=== PATIENT | female | born 1985 | race Caucasian/White ===

== ENCOUNTER 2016-12-24 19:39 | Emergency (ER) | payer OTHER ==
[2016-12-24] MEDS ORDERED: ZOFRAN IV ONE (20:21)
[2016-12-24] MEDS ORDERED: DILAUDID IV ONE ×2 (20:21→20:40)
[2016-12-24] MEDS ORDERED: AMIDATE IV ONE ×2 (20:22→20:54)
--- NOTE | 2016-12-24 21:08 | Emergency Department Report ---
ED Upper Extremity Inj HPI - General Chief Complaint: Extremity Injury, Upper Stated Complaint: POSS DISLOCATED RT SHOULDER Time Seen by Provider: 12/24/16 20:18 Source: patient, family Mode of arrival: Ambulatory Limitations: No Limitations - History of Present Illness Initial Comments: 31 year old female with no significant past medical history presents to the hospital complaining of possible right shoulder dislocation. Patient was receiving for her baby when she felt a pop in her shoulder. Decreased range of motion secondary to pain. No previous history of trauma or previous dislocations. Pain is 7/10 intensity, aching, constant, worse with movement and palpation, no alleviating factors. She is right-hand dominant. - Related Data Previous Rx's Medication Instructions Recorded Last Taken Type Ibuprofen [Motrin] 800 mg PO Q8HR PRN #30 tablet 12/24/16 Unknown Rx traMADol [Ultram 50 MG tab] 50 mg PO Q6HR PRN #20 tablet 12/24/16 Unknown Rx Allergies Allergy/AdvReac Type Severity Reaction Status Date / Time No Known Allergies Allergy Verified 12/24/16 19:43 ED Review of Systems ROS: Stated complaint: POSS DISLOCATED RT SHOULDER Other details as noted in HPI Comment: All other systems reviewed and negative Other: Constitutional: No fevers chills Eyes: No eye pain visual changes ENT: No ear pain or throat pain Neck: Denies pain Respiratory: Denies cough wheezing shortness of breath Cardiovascular: Denies chest pain, palpitations, syncope GI: Denies abdominal pain, nausea, vomiting, diarrhea : Denies dysuria Musculoskeletal: Per HPI Skin: Denies rash, lesions, erythema Neurologic: Denies headache, numbness, weakness Psychiatric: Denies suicidal ideation, hallucinations ED Past Medical Hx - Past Medical History Previous Medical History?: No - Surgical History Past Surgical History?: No - Social History Smoking Status: Never Smoker Substance Use Type: None - Medications Home Medications: Home Medications Medication Instructions Recorded Confirmed Last Taken Type Ibuprofen [Motrin] 800 mg PO Q8HR PRN #30 tablet 12/24/16 Unknown Rx traMADol [Ultram 50 MG tab] 50 mg PO Q6HR PRN #20 tablet 12/24/16 Unknown Rx ED Physical Exam - General Limitations: No Limitations - Other Other exam information: General: No limitations, patient is alert in no acute distress Head exam: Atraumatic, normocephalic Eyes exam: Normal appearance, pupils equal reactive to light, extraocular movements intact ENT: Moist mucous membrane, normal oropharynx Neck exam: Normal inspection, full range of motion, no meningismus nontender Respiratory exam: Clear to auscultation bilateral, no wheezes, rales, crackles Cardiovascular: Normal rate and rhythm, normal heart sounds Abdomen: Soft, nondistended, and nontender, with normal bowel sounds, no rebound, or guarding Extremity: Right shoulder held adducted internally rotated. Positive deformity to shoulder area, tender to palpation, pain with movement in all directions, 2+ DP pulse. Sensation along forearm and deltoid intact. Back: Normal Inspection, full range of motion, no tenderness Neurologic: Alert, oriented x3, cranial nerves intact, no motor or sensory deficit Psychiatric: normal affect, normal mood Skin: Warm, dry, intact ED Course Vital Signs 12/24/16 12/24/16 12/24/16 19:39 20:30 20:42 Temperature 97.7 F Temperature [ Intra-Procedure ] Temperature [ Post-Procedure] Temperature [ Pre-Procedure] Pulse Rate 95 H Pulse Rate [ Intra-Procedure ] Pulse Rate [ Post-Procedure] Pulse Rate [Pre -Procedure] Respiratory 22 18 18 Rate Respiratory Rate [Intra- Procedure] Respiratory Rate [Post- Procedure] Respiratory Rate [Pre- Procedure] Blood Pressure [Intra- Procedure] Blood Pressure [Post-Procedure ] Blood Pressure [Pre-Procedure] Blood Pressure 155/96 [Right] O2 Sat by Pulse 97 Oximetry O2 Sat by Pulse Oximetry [ Intra-Procedure ] O2 Sat by Pulse Oximetry [Post -Procedure] O2 Sat by Pulse Oximetry [Pre- Procedure] 12/24/16 12/24/16 12/24/16 20:50 20:54 20:58 Temperature Temperature [ 98.3 F Intra-Procedure ] Temperature [ Post-Procedure] Temperature [ 98.1 F Pre-Procedure] Pulse Rate Pulse Rate [ 84 Intra-Procedure ] Pulse Rate [ Post-Procedure] Pulse Rate [Pre 97 H -Procedure] Respiratory 18 22 Rate Respiratory 18 Rate [Intra- Procedure] Respiratory Rate [Post- Procedure] Respiratory 18 Rate [Pre- Procedure] Blood Pressure 140/90 [Intra- Procedure] Blood Pressure [Post-Procedure ] Blood Pressure 115/76 [Pre-Procedure] Blood Pressure [Right] O2 Sat by Pulse Oximetry O2 Sat by Pulse 100 Oximetry [ Intra-Procedure ] O2 Sat by Pulse Oximetry [Post -Procedure] O2 Sat by Pulse 100 Oximetry [Pre- Procedure] 12/24/16 21:04 Temperature Temperature [ Intra-Procedure ] Temperature [ 98.3 F Post-Procedure] Temperature [ Pre-Procedure] Pulse Rate Pulse Rate [ Intra-Procedure ] Pulse Rate [ 66 Post-Procedure] Pulse Rate [Pre -Procedure] Respiratory Rate Respiratory Rate [Intra- Procedure] Respiratory 18 Rate [Post- Procedure] Respiratory Rate [Pre- Procedure] Blood Pressure [Intra- Procedure] Blood Pressure 129/90 [Post-Procedure ] Blood Pressure [Pre-Procedure] Blood Pressure [Right] O2 Sat by Pulse Oximetry O2 Sat by Pulse Oximetry [ Intra-Procedure ] O2 Sat by Pulse 100 Oximetry [Post -Procedure] O2 Sat by Pulse Oximetry [Pre- Procedure] - Moderate Sedation Indications: fracture/dislocation redu ASA Class: I Mallampati Airway Score: 2 Time of Last PO Intake: 16:00 Preparation: cardiac/vascular sonographer applied, pulse oximeter, capnometry used, supplemental O2 applied, suction/airway equipment at bedside, IV secured IV Etomidate Dose (mgs): 15 Complications: none Patient Tolerated Procedure: well - Orthopedic Joint Reduction Joint #1 Consent Obtained: written consent Time Out Performed: Yes Side: right Joint Reduction Location: shoulder Analgesia: moderate sedation Shoulder Technique Used (if applicable): traction/counter-traction Post-Reduction Neuro Exam: intact Post-Reduction Vascular Exam: intact Post Reduction X-Ray Obtained: Yes Post Reduction X-Ray Results: reduced Splint Applied: Yes Patient Tolerated Procedure: well ED Medical Decision Making - Radiology Data Radiology results: image reviewed interpreted by me: Right shoulder x-ray: Inferior anterior shoulder dislocation repeat post reduction xray right shoulder: improved alignment - Medical Decision Making Patient had a shoulder dislocation. Successfully reduced in the ED. Patient be discharged with shoulder immobilizer and pain medication. Orthopedic follow- up will be encouraged. - Differential Diagnosis dislocation, fracture, sprain Critical Care Time: No Critical care attestation.: If time is entered above; I have spent that time in minutes in the direct care of this critically ill patient, excluding procedure time. ED Disposition Clinical Impression: Dislocation of right shoulder joint Disposition: DC-01 TO HOME OR SELFCARE Is pt being admited?: No Does the pt Need Aspirin: No Condition: Stable Instructions: Shoulder Dislocation (ED) Additional Instructions: Take the medication as needed for pain. Return if symptoms worsen. Continue to use your sling. Is very important that you follow up with orthopedic doctor for further evaluation and treatment as well as rehabilitation Prescriptions: Ibuprofen [Motrin] 800 mg PO Q8HR PRN #30 tablet PRN Reason: Pain traMADol [Ultram 50 MG tab] 50 mg PO Q6HR PRN #20 tablet PRN Reason: Pain Referrals: MADHURI MCKEON MD [Staff Physician] - 3-5 Days (Orthopedic surgeon) Time of Disposition: 21:58
[2016-12-25 02:45] VITALS: BP 121/72
--- NOTE | 2016-12-25 08:44 | XRay Report ---
3 views right shoulder: History: Postreduction. Findings: Normal glenoid relation with humeral head. No fracture or dislocation. Impression: Stable post reduction.
--- NOTE | 2016-12-25 08:44 | XRay Report ---
Right shoulder 2 views: History: Possible dislocation. Findings: There is anterior dislocation noted of the humeral head. Humeral head is noted in the anterior inferior aspect of the glenoid. No fracture. Impression: Anterior dislocation right shoulder.
== END 2016-12-24 22:15 | disposition home or self-care (01) ==
LOC: ED 19:39
DX: S43.004A Unspecified dislocation of right shoulder joint, initial encounter (principal); X58.XXXA Exposure to other specified factors, initial encounter; Y93.9 Activity, unspecified; Y92.9 Unspecified place or not applicable; Y99.9 Unspecified external cause status
CPT/HCPCS: 23650; 73030; 96374; 96375; 99284; J1170; J2405

== ENCOUNTER 2020-08-30 19:15 | Emergency (ER) | payer SELFPAY ==
[2020-08-30 22:20] VITALS: BP 100/62
--- NOTE | 2020-08-30 22:45 | Emergency Department Report ---
ED General Adult HPI - General Chief complaint: Chest Pain Stated complaint: CHEST PAIN;BACK PAIN Time Seen by Provider: 08/30/20 22:35 Source: patient Mode of arrival: Ambulatory Limitations: No Limitations - History of Present Illness Initial comments: Patient is a 35-year-old female presents emergency room with complaints of intermittent chest pain for a year. Patient states that the pain begins in the epigastric region and radiates up the chest. She states that it feels like a burning sensation and she gets a metallic taste in her mouth and occasionally she has bloating. She states that she is also been having some lower back discomfort. Patient states that she went to a clinic approximately year ago and was advised everything was normal. She states last week she saw her primary care doctor and was diagnosed with H. pylori and placed on clarithromycin, amoxicillin, lansoprazole. She has not seen a GI specialist. She denies any fever, shortness of breath, leg swelling, nausea, vomiting, diarrhea, hemoptysis, cough, pleuritic or exertional chest pain. No past medical history. No allergies to medications. Last menstrual cycle 3 weeks ago. - Related Data Previous Rx's Medication Instructions Recorded Last Taken Type Ibuprofen [Motrin] 800 mg PO Q8HR PRN #30 tablet 12/24/16 Unknown Rx traMADoL [Ultram 50 MG tab] 50 mg PO Q6HR PRN #20 tablet 12/24/16 Unknown Rx Lidocaine Viscous 2% 15 ml MM Q6HR PRN #150 ml 08/31/20 Unknown Rx Mag Hydrox/Aluminum Hyd/Simeth 10 ml PO QID PRN #1 oral.susp 08/31/20 Unknown Rx [Maalox Advanced Suspension] Allergies Allergy/AdvReac Type Severity Reaction Status Date / Time No Known Allergies Allergy Verified 12/24/16 19:43 ED Review of Systems ROS: Stated complaint: CHEST PAIN;BACK PAIN Other details as noted in HPI Comment: All other systems reviewed and negative ED Past Medical Hx - Past Medical History Previous Medical History?: No - Surgical History Past Surgical History?: No - Social History Smoking Status: Never Smoker Substance Use Type: None - Medications Home Medications: Home Medications Medication Instructions Recorded Confirmed Last Taken Type Ibuprofen [Motrin] 800 mg PO Q8HR PRN #30 tablet 12/24/16 Unknown Rx traMADoL [Ultram 50 MG tab] 50 mg PO Q6HR PRN #20 tablet 12/24/16 Unknown Rx Lidocaine Viscous 2% 15 ml MM Q6HR PRN #150 ml 08/31/20 Unknown Rx Mag Hydrox/Aluminum Hyd/Simeth 10 ml PO QID PRN #1 oral.susp 08/31/20 Unknown Rx [Maalox Advanced Suspension] ED Physical Exam - General Limitations: No Limitations General appearance: alert, in no apparent distress - Head Head exam: Present: atraumatic, normocephalic - Eye Eye exam: Present: normal appearance - ENT ENT exam: Present: mucous membranes moist - Respiratory Respiratory exam: Present: normal lung sounds bilaterally. Absent: respiratory distress, wheezes, rales, rhonchi, stridor, chest wall tenderness, accessory muscle use, decreased breath sounds, prolonged expiratory - Cardiovascular Cardiovascular Exam: Present: regular rate, normal rhythm, normal heart sounds. Absent: systolic murmur, diastolic murmur, rubs, gallop - GI/Abdominal GI/Abdominal exam: Present: soft, normal bowel sounds. Absent: distended, tenderness, guarding, rebound, rigid - Neurological Exam Neurological exam: Present: alert, oriented X3 - Psychiatric Psychiatric exam: Present: normal affect, normal mood - Skin Skin exam: Present: warm, dry, intact ED Course Vital Signs 08/30/20 22:13 Temperature 97.8 F Pulse Rate 68 Respiratory 18 Rate Blood Pressure 100/62 O2 Sat by Pulse 98 Oximetry ED Medical Decision Making - Lab Data Result diagrams: 08/30/20 22:50 08/30/20 22:50 Labs 08/30/20 08/30/20 08/30/20 22:50 22:50 Unknown WBC 8.2 RBC 4.91 Hgb 15.0 H Hct 43.4 H MCV 88 MCH 31 MCHC 35 H RDW 13.4 Plt Count 244 Lymph % (Auto) 22.8 [place] % (Auto) 6.7 Eos % (Auto) 1.2 Baso % (Auto) 0.3 Lymph # (Auto) 1.9 [place] # (Auto) 0.5 Eos # (Auto) 0.1 Baso # (Auto) 0.0 Seg Neutrophils % 69.0 Seg Neutrophils # 5.7 Sodium 138 Potassium 3.7 Chloride 102.3 Carbon Dioxide 24 Anion Gap 15 BUN 18 H Creatinine 0.6 Estimated GFR > 60 BUN/Creatinine Ratio 30 Glucose 85 Calcium 9.2 Total Bilirubin 0.30 AST 20 ALT 31 Alkaline Phosphatase 90 Total Protein 7.3 Albumin 4.5 Albumin/Globulin Ratio 1.6 Lipase 31 Urine Color Yellow Urine Turbidity Clear Urine pH 9.0 H Ur Specific [place] 1.017 Urine Protein <15 mg/dl Urine Glucose (UA) Neg Urine Ketones Neg Urine Blood Neg Urine Nitrite Neg Urine Bilirubin Neg Urine Urobilinogen < 2.0 Ur Leukocyte Esterase Neg Urine WBC (Auto) 1.0 Urine RBC (Auto) 11.0 U Epithel Cells (Auto) 10.0 Urine Mucus Few Urine HCG, Qual Negative - Medical Decision Making Patient is a 35-year-old female presents emergency room with complaints of intermittent chest pain for a year. Patient states that the pain begins in the epigastric region and radiates up the chest. She states that it feels like a burning sensation and she gets a metallic taste in her mouth and occasionally she has bloating. She states that she is also been having some lower back discomfort. Patient states that she went to a clinic approximately year ago and was advised everything was normal. She states last week she saw her primary care doctor and was diagnosed with H. pylori and placed on clarithromycin, amoxicillin, lansoprazole. She has not seen a GI specialist. She denies any fever, shortness of breath, leg swelling, nausea, vomiting, diarrhea, hemoptysis, cough, pleuritic or exertional chest pain. No past medical history. No allergies to medications. Last menstrual cycle 3 weeks ago. Vitals are normal. No abnormality on physical examination as documented in chart. Labs are normal. UA is within normal limits. Urine is negative. EKG ordered prior to my examination is within normal limits. Symptoms appear most consistent with PUD versus GERD. Patient is currently on medications for PUD. Patient given prescription for medications for symptomatic relief. Discussed the importance of GI follow-up. Advised patient Please complete your course of medications as prescribed by your doctor. Please take medications as prescribed as needed. Follow-up with a primary care doctor. Follow-up with a GI doctor. Increase your water intake. Avoid spicy food, avoid anything barbecue base, avoid anything tomato-based, avoid eating and laying flat. Return to emergency room for any new or worsening symptoms. Critical care attestation.: If time is entered above; I have spent that time in minutes in the direct care of this critically ill patient, excluding procedure time. ED Disposition Clinical Impression: PUD (peptic ulcer disease) Disposition: DC-01 TO HOME OR SELFCARE Is pt being admited?: No Does the pt Need Aspirin: No Condition: Stable Instructions: Peptic Ulcer, [id number] Additional Instructions: Please complete your course of medications as prescribed by your doctor. Please take medications as prescribed as needed. Follow-up with a primary care doctor. Follow-up with a GI doctor. Increase your water intake. Avoid spicy food, avoid anything barbecue base, avoid anything tomato-based, avoid eating and laying flat. Return to emergency room for any new or worsening symptoms. Prescriptions: Lidocaine Viscous 2% 15 ml MM Q6HR PRN #150 ml PRN Reason: burning Mag Hydrox/Aluminum Hyd/Simeth [Maalox Advanced Suspension] 10 ml PO QID PRN #1 oral.susp PRN Reason: pain/burning Referrals: PRIMARY CARE, [Primary Care Provider] - 2-3 Days [facility] [Provider Group] - 2-3 Days Time of Disposition: 00:27 Print Language: IRISH
[2020-08-30 23:18] LABS: Basophils % (Auto) 0.3 % (0.0-1.8); Eosinophils # (Auto) 0.1 K/mm3 (0.0-0.4); Eosinophils % (Auto) 1.2 % (0.0-4.3); Hematocrit 43.4 % (30.3-42.9); Lymphocytes # (Auto) 1.9 K/mm3 (1.2-5.4); Lymphocytes % (Auto) 22.8 % (13.4-35.0); Mean Corpuscular HGB Conc 35 % (30-34); Mean Corpuscular Volume 88 fl (79-97); Monocytes # (Auto) 0.5 K/mm3 (0.0-0.8); Monocytes % (Auto) 6.7 % (0.0-7.3); Platelet Count 244 K/mm3 (140-440); Red Blood Count 4.91 M/mm3 (3.65-5.03); Red Cell Distribution Width 13.4 % (13.2-15.2)
[2020-08-30 23:31] LABS: Bilirubin,Urine NEG (Negative); Blood,Urine NEG (Negative); Color,Urine Yellow (Yellow); Mucus,Urine FEW /HPF; Protein,Urine <15 mg/dL mg/dL (Negative); Urobilinogen,Urine < 2.0 mg/dL (<2.0)
[2020-08-30 23:41] LABS: HCG Qualitative,Urine Negative (Negative)
[2020-08-31 00:15] LABS: Alanine Aminotransferase 31 units/L (7-56); Albumin 4.5 g/dL (3.9-5); BUN/Creatinine Ratio 30; Blood Urea Nitrogen 18 mg/dL (7-17); Calcium 9.2 mg/dL (8.4-10.2); Hemolysis Index 8
== END 2020-08-31 01:55 | disposition home or self-care (01) ==
LOC: ED 19:15
DX: K27.9 Peptic ulcer, site unspecified, unspecified as acute or chronic, without hemorrhage or perforation (principal); Z79.899 Other long term (current) drug therapy
CPT/HCPCS: 36415; 80053; 81001; 81025; 83690; 85025; 93005

== ENCOUNTER 2021-07-29 01:42 | Inpatient (IN) | payer SELFPAY ==
[2021-07-29 02:23] LABS: Bilirubin,Urine NEG (Negative); Blood,Urine LG (Negative); Color,Urine Yellow (Yellow); Mucus,Urine FEW /HPF; Protein,Urine <15 mg/dL mg/dL (Negative); Urobilinogen,Urine < 2.0 mg/dL (<2.0)
[2021-07-29 02:43] LABS: Basophils % (Auto) 0.5 % (0.0-1.8); Eosinophils # (Auto) 0.1 K/mm3 (0.0-0.4); Eosinophils % (Auto) 1.2 % (0.0-4.3); Hematocrit 42.3 % (30.3-42.9); Hemoglobin 14.2 gm/dl (10.1-14.3); Lymphocytes % (Auto) 17.2 % (13.4-35.0); Mean Corpuscular HGB Conc 34 % (30-34); Mean Corpuscular Volume 86 fl (79-97); Monocytes # (Auto) 0.4 K/mm3 (0.0-0.8); Monocytes % (Auto) 7.6 % (0.0-7.3); Platelet Count 256 K/mm3 (140-440); Red Cell Distribution Width 13.7 % (13.2-15.2)
[2021-07-29 03:01] LABS: Alanine Aminotransferase 575 units/L (7-56); Albumin 4.4 g/dL (3.9-5); Blood Urea Nitrogen 9 mg/dL (7-17); Calcium 9.4 mg/dL (8.4-10.2); Hemolysis Index 5
[2021-07-29 03:37] LABS: BUN/Creatinine Ratio 18
[2021-07-29] MEDS ORDERED: MORPHINE 4 MG/1 ML INJ IV ONE (04:49)
[2021-07-29] MEDS ORDERED: ONDANSETRON 4 MG/2 ML INJ IV ONE (04:49)
[2021-07-29] MEDS ORDERED: FAMOTIDINE 20 MG/2 ML INJ IV ONE (04:49)
--- NOTE | 2021-07-29 05:16 | Emergency Department Report ---
<HUMZA ZAVALA - Last Filed: 07/29/21 06:07> ED Abdominal Pain HPI - General Chief Complaint: Abdominal Pain Stated Complaint: ABD AND BACK PAIN Source: patient Mode of arrival: Ambulatory Limitations: No Limitations - History of Present Illness Initial Comments: Patient is a 36-year-old female with no past medical history who presents to the ED with complaint of acute onset persistent epigastric pain that radiates to the right upper quadrant area with intractable nausea and vomiting for the last 12 hours. Patient states the pain has been constant and persistent and that the pain gets worse with food as a result of nausea and vomiting. P atient denies fever, chills, cough, dizziness, syncope, chest pain, shortness of breath, diarrhea, dysuria, urinary frequency and urgency, vaginal discharge or dyspareunia and flank pain. MD Complaint: abdominal pain (Diffuse upper abdominal pain worse in the right upper quadrant area), other (Intractable nausea and vomiting) -: Sudden, hour(s) (12) Location: RUQ, epigastric Radiation: RUQ, epigastric Severity: severe Severity scale (0 -10): 8 Quality: cramping, aching, sharp Consistency: constant Improves With: nothing Worsens With: eating, vomiting Associated Symptoms: denies other symptoms, nausea, vomiting, anorexia. denies: diarrhea, fever, chills, constipation, hematemesis, hematochezia, melena, hematuria, other - Related Data LMP Date: 07/24/21 Previous Rx's Medication Instructions Recorded Last Taken Type Ibuprofen [Motrin] 800 mg PO Q8HR PRN #30 tablet 12/24/16 Unknown Rx traMADoL [Ultram 50 MG tab] 50 mg PO Q6HR PRN #20 tablet 12/24/16 Unknown Rx Lidocaine Viscous 2% 15 ml MM Q6HR PRN #150 ml 08/31/20 Unknown Rx Mag Hydrox/Aluminum Hyd/Simeth 10 ml PO QID PRN #1 oral.susp 08/31/20 Unknown Rx [Maalox Advanced Suspension] Allergies Allergy/AdvReac Type Severity Reaction Status Date / Time No Known Allergies Allergy Verified 12/24/16 19:43 ED Review of Systems Constitutional: denies: chills, fever Eyes: denies: eye pain, eye discharge, vision change ENT: denies: ear pain, throat pain Respiratory: denies: cough, shortness of breath, wheezing Cardiovascular: denies: chest pain, palpitations Endocrine: no symptoms reported Gastrointestinal: abdominal pain (Epigastric and right upper quadrant pain), nausea, vomiting. denies: diarrhea Genitourinary: denies: urgency, dysuria, discharge Musculoskeletal: denies: back pain, joint swelling, arthralgia Skin: denies: rash, lesions Neurological: denies: headache, weakness, paresthesias Psychiatric: denies: anxiety, depression Hematological/Lymphatic: denies: easy bleeding, easy bruising ED Past Medical Hx - Social History Smoking Status: Never Smoker Substance Use Type: None - Medications Home Medications: Home Medications Medication Instructions Recorded Confirmed Last Taken Type Ibuprofen [Motrin] 800 mg PO Q8HR PRN #30 tablet 12/24/16 Unknown Rx traMADoL [Ultram 50 MG tab] 50 mg PO Q6HR PRN #20 tablet 12/24/16 Unknown Rx Lidocaine Viscous 2% 15 ml MM Q6HR PRN #150 ml 08/31/20 Unknown Rx Mag Hydrox/Aluminum Hyd/Simeth 10 ml PO QID PRN #1 oral.susp 08/31/20 Unknown Rx [Maalox Advanced Suspension] ED Physical Exam - General Limitations: No Limitations General appearance: alert, in no apparent distress - Head Head exam: Present: atraumatic, normocephalic, normal inspection - Eye Eye exam: Present: normal appearance, PERRL, EOMI Pupils: Present: normal accommodation - ENT ENT exam: Present: normal exam, normal orophraynx, mucous membranes moist, TM's normal bilaterally, normal external ear exam - Neck Neck exam: Present: normal inspection, full ROM. Absent: tenderness - Respiratory Respiratory exam: Present: normal lung sounds bilaterally. Absent: respiratory distress, wheezes, rales, rhonchi, chest wall tenderness, accessory muscle use, decreased breath sounds, other - Cardiovascular Cardiovascular Exam: Present: regular rate, normal rhythm, normal heart sounds. Absent: systolic murmur, diastolic murmur, rubs, gallop - GI/Abdominal GI/Abdominal exam: Present: soft, tenderness (Palpable epigastric and right upper quadrant tenderness with a positive Stuart sign), guarding, normal bowel sounds. Absent: rebound, hyperactive bowel sounds, hypoactive bowel sounds, organomegaly, bruit - Extremities Exam Extremities exam: Present: normal inspection, full ROM, normal capillary refill. Absent: tenderness - Back Exam Back exam: Present: normal inspection, full ROM. Absent: tenderness, CVA tenderness (R), CVA tenderness (L), muscle spasm, paraspinal tenderness, vertebral tenderness - Neurological Exam Neurological exam: Present: alert, oriented X3, CN II-XII intact, normal gait, reflexes normal - Psychiatric Psychiatric exam: Present: normal affect, normal mood - Skin Skin exam: Present: warm, dry, intact, normal color. Absent: rash ED Medical Decision Making - Lab Data Result diagrams: 07/29/21 02:04 07/29/21 02:04 - Radiology Data Radiology results: report reviewed, image reviewed - Medical Decision Making This is a 36-year-old female with no past medical history who presents to the ED with complaint of acute onset persistent epigastric pain that radiates to the right upper quadrant area with intractable nausea and vomiting for the last 12 hours. Patient states the pain has been constant and persistent and that the pain gets worse with food as a result of nausea and vomiting. In the ED, patient is alert and oriented x3 and is not in any distress. Patient was treated for pain in the ED and also given antiemetics and antacids. Lab test results were reviewed and showed total bilirubin of 1.30, AST of 727, ALT of 575, and alk phos of 167. Urinalysis is unremarkable. Patient care was transferred to Ms. Saida Quintanilla COMPUTER PROGRAMMING SUPERVISOR at shift change. She shall review all imaging reports and disposition the patient accordingly. - Differential Diagnosis Gallstones; cholecystitis; GERD; gastroenteritis; appendicitis; UTI ED Disposition Clinical Impression: Acute abdominal pain in right upper quadrant Disposition: 01 HOME / SELF CARE / HOMELESS Condition: Stable Instructions: Abdominal Pain (ED) Referrals: MYLENE WU MD [Primary Care Provider] - 3-5 Days <ANNIE LUNA - Last Filed: 07/29/21 07:42> ED Abdominal Pain HPI - General PUI?: No ED Review of Systems ROS: Stated complaint: ABD AND BACK PAIN Other details as noted in HPI Comment: All other systems reviewed and negative ED Past Medical Hx - Past Medical History Previous Medical History?: No - Family History Family history: no significant ED Course Vital Signs 07/29/21 01:46 Temperature 98.3 F Pulse Rate 86 Respiratory 18 Rate Blood Pressure 140/91 O2 Sat by Pulse 96 Oximetry - Reevaluation(s) Reevaluation #1: 07/29/21 07:[address] Riki LR aware of admit- Dr Garcia to see pt updated on plan of care ED Medical Decision Making - Lab Data Result diagrams: 07/29/21 02:04 07/29/21 02:04 - Radiology Data see report - Medical Decision Making Labs 07/29/21 07/29/21 07/29/21 02:04 02:04 05:56 WBC 5.6 RBC 4.90 Hgb 14.2 Hct 42.3 MCV 86 MCH 29 MCHC 34 RDW 13.7 Plt Count 256 Lymph % (Auto) 17.2 [place] % (Auto) 7.6 H Eos % (Auto) 1.2 Baso % (Auto) 0.5 Lymph # (Auto) 1.0 L [place] # (Auto) 0.4 Eos # (Auto) 0.1 Baso # (Auto) 0.0 Seg Neutrophils % 73.5 H Seg Neutrophils # 4.1 Sodium 137 Potassium 3.8 Chloride 104.0 Carbon Dioxide 21 L Anion Gap 16 BUN 9 Creatinine 0.5 L Estimated GFR > 60 BUN/Creatinine Ratio 18 Glucose 104 H Calcium 9.4 Total Bilirubin 1.30 H AST 727 H ALT 575 H Alkaline Phosphatase 167 H Total Protein 7.3 Albumin 4.4 Albumin/Globulin Ratio 1.5 HCG, Qual Negative Urine Color Urine Turbidity Urine pH Ur Specific [place] Urine Protein Urine Glucose (UA) Urine Ketones Urine Blood Urine Nitrite Urine Bilirubin Urine Urobilinogen Ur Leukocyte Esterase Urine WBC (Auto) Urine RBC (Auto) U Epithel Cells (Auto) Urine Mucus 07/29/21 Unknown WBC RBC Hgb Hct MCV MCH MCHC RDW Plt Count Lymph % (Auto) [place] % (Auto) Eos % (Auto) Baso % (Auto) Lymph # (Auto) [place] # (Auto) Eos # (Auto) Baso # (Auto) Seg Neutrophils % Seg Neutrophils # Sodium Potassium Chloride Carbon Dioxide Anion Gap BUN Creatinine Estimated GFR BUN/Creatinine Ratio Glucose Calcium Total Bilirubin AST ALT Alkaline Phosphatase Total Protein Albumin Albumin/Globulin Ratio HCG, Qual Urine Color Yellow Urine Turbidity Clear Urine pH 5.0 Ur Specific [place] 1.016 Urine Protein <15 mg/dl Urine Glucose (UA) Neg Urine Ketones Neg Urine Blood Lg Urine Nitrite Neg Urine Bilirubin Neg Urine Urobilinogen < 2.0 Ur Leukocyte Esterase Neg Urine WBC (Auto) 4.0 Urine RBC (Auto) 28.0 U Epithel Cells (Auto) 2.0 Urine Mucus Few Vital Signs 07/29/21 01:46 Temperature 98.3 F Pulse Rate 86 Respiratory 18 Rate Blood Pressure 140/91 O2 Sat by Pulse 96 Oximetry PT NPO for surgery today or in AM Dr Garcia and Dr Lyn to see Pt aware VS check reordered Critical care attestation.: If time is entered above; I have spent that time in minutes in the direct care of this critically ill patient, excluding procedure time. ED Disposition Is pt being admited?: Yes Does the pt Need Aspirin: No Time of Disposition: 07:42
--- NOTE | 2021-07-29 05:56 | Cat Scan Report ---
CT ABDOMEN AND PELVIS WITH CONTRAST INDICATION / CLINICAL INFORMATION: Patient complains of R.U.Q. and R.L.Q. abdominal pain with N/V. TECHNIQUE: Axial CT images were obtained through the abdomen and pelvis after 100 cc Omnipaque [address] scans at this location are performed using CT dose reduction for ALARA by means of automated exposure control. COMPARISON: None available. FINDINGS: LOWER CHEST: No significant abnormality of the imaged chest. Small hiatal hernia. LIVER: No significant abnormality. GALLBLADDER: At least one small gallstone is noted within the dependent gallbladder fundus. Gallbladd er wall may be minimally thickened. No inflammatory changes. BILE DUCTS: No significant abnormality. SPLEEN: No significant abnormality. PANCREAS: No significant abnormality. ADRENALS: No significant abnormality. RIGHT KIDNEY / URETER: No significant abnormality. LEFT KIDNEY / URETER: No significant abnormality. STOMACH / DUODENUM / SMALL BOWEL: No significant abnormality. COLON: No significant abnormality. APPENDIX: No significant abnormality. PERITONEUM: No free air or free fluid are present within the abdomen or pelvis. LYMPH NODES: No significant adenopathy. AORTA / ARTERIES: No significant abnormality. IVC / VEINS: No significant abnormality. URINARY BLADDER: No significant abnormality. REPRODUCTIVE ORGANS: No significant abnormality. Incidental note is made of tampon. ADDITIONAL ABDOMINAL/PELVIC FINDINGS: None. SKELETAL SYSTEM: No significant abnormality. IMPRESSION: 1. Cholelithiasis with minimal thickening of the gallbladder wall suggested. No inflammatory changes to suggest acute cholecystitis. Signer Name: Naseem Gunn II, MD Signed: 07/29/2021 5:52 AM Workstation Name: [id number]
[2021-07-29] MEDS ORDERED: PIPERACIL/TAZOBACTA 4.5/NS 100 4.5 GM/100 ML VIAL IV ONE (06:09)
--- NOTE | 2021-07-29 07:05 | Ultrasound Report ---
ULTRASOUND ABDOMEN, LIMITED INDICATION / CLINICAL INFORMATION: RUQ PAIN. COMPARISON: CT abdomen and pelvis same date FINDINGS: PANCREAS: No interval acute findings. LIVER: Mild hepatic steatosis is suggested. Right back lobe measures 15.5 cm. Normal hepatopedal bloo d flow in the main portal vein. GALLBLADDER: Multiple gallstones. Gallbladder wall measures up to 2-3 mm. No pericholecystic fluid. BILE DUCTS: No significant abnormality. Common bile duct measures 3.2 mm. FREE FLUID: None. ADDITIONAL FINDINGS: Images of the aorta and inferior vena cava demonstrate no interval acute finding s. IMPRESSION: 1. Minimally echogenic liver suggests mild hepatic steatosis. 2. Cholelithiasis. Borderline wall thickening. Signer Name: Naseem Gunn II, MD Signed: 07/29/2021 7:01 AM Workstation Name: [id number]
[2021-07-29] MEDS ORDERED: SODIUM CHLORIDE 0.9% 1000 ML 1,000 ML IV ONE (07:56)
[2021-07-29] MEDS ORDERED: ACETAMINOPHEN 325 MG TAB PO PRN (09:00)
[2021-07-29] MEDS ORDERED: D5W/0.45% NACL 1,000 ML IV SCH (09:00)
[2021-07-29] MEDS ORDERED: MORPHINE 2 MG/1 ML INJ IV PRN (09:00)
[2021-07-29] MEDS ORDERED: ONDANSETRON 4 MG/2 ML INJ IV PRN ×2 (09:00→12:42)
--- NOTE | 2021-07-29 10:43 | Consultation ---
History of Present Illness Consult date: 07/29/21 Reason for consult: gallstones - History of present illness History of present illness: Patient is a 36-year-old female with no past medical history who presents to the ED with complaint of acute onset persistent epigastric pain that radiates to the right upper quadrant area with intractable nausea and vomiting for the last 12 hours. Patient states the pain has been constant and persistent and that the pain gets worse with food as a result of nausea and vomiting. Pt notes fatty food intolerance and four prior episodes of severe pain. She has been seen in the ED a total of three times. US with multiple small stones. Pt without history of Pancreatitis or Jaundice. Patient denies fever, chills, cough, dizziness, syncope, chest pain, shortness of breath, diarrhea, dysuria, urinary frequency and urgency, vaginal discharge or dyspareunia and flank pain. Medications and Allergies Allergies Allergy/AdvReac Type Severity Reaction Status Date / Time No Known Allergies Allergy Verified 12/24/16 19:43 Home Medications Medication Instructions Recorded Confirmed Last Taken Type Ibuprofen [Motrin] 800 mg PO Q8HR PRN #30 tablet 12/24/16 Unknown Rx traMADoL [Ultram 50 MG tab] 50 mg PO Q6HR PRN #20 tablet 12/24/16 Unknown Rx Lidocaine Viscous 2% 15 ml MM Q6HR PRN #150 ml 08/31/20 Unknown Rx Mag Hydrox/Aluminum Hyd/Simeth 10 ml PO QID PRN #1 oral.susp 08/31/20 Unknown Rx [Maalox Advanced Suspension] Active Meds: Active Medications Acetaminophen (Acetaminophen 325 Mg Tab) 650 mg PO Q4H PRN PRN Reason: Pain MILD(1-3)/Fever >100.5/[place] Sodium Chloride (Nacl 0.9% 1000 Ml) 1,000 mls @ 75 mls/hr IV ONCE ONE Stop: 07/29/21 21:15 Last Admin: 07/29/21 08:50 Dose: 75 mls/hr Dextrose/Sodium Chloride (D5/0.45ns) 1,000 mls @ 100 mls/hr IV DIRECT VANCE Morphine Sulfate (Morphine 2 Mg/1 Ml Inj) 2 mg IV Q4H PRN PRN Reason: Pain, Moderate (4-6) Morphine Sulfate (Morphine 4 Mg/1 Ml Inj) 4 mg IV Q4H PRN PRN Reason: Pain , Severe (7-10) Ondansetron HCl (Ondansetron 4 Mg/2 Ml Inj) 4 mg IV Q8H PRN PRN Reason: Nausea And Vomiting Sodium Chloride (Sodium Chloride 0.9% 10 Ml Flush Syringe) 10 ml IV BID VANCE Sodium Chloride (Sodium Chloride 0.9% 10 Ml Flush Syringe) 10 ml IV PRN PRN PRN Reason: LINE FLUSH Exam Vital Signs Temp Pulse Resp BP Pulse Ox 98.3 F 86 18 140/91 96 07/29/21 01:46 07/29/21 01:46 07/29/21 01:46 07/29/21 01:46 07/29/21 01:46 - General physical appearance Positive: well developed - Eyes Positive: PERRL - Neck Positive: no masses, no bruits, trachea midline - Respiratory Positive: normal expansion - Cardiovascular Rhythm: regular - Extremities Extremities: no ischemia, No edema - Abdomen Abdomen: Present: soft, tender. Absent: distended, masses, rebound Hernia: none - Integumentary no rash - Neurologic Neurologic: alert and oriented to time, place and person, motor strength and sensation are grossly intact, CN II-XII intact Results - Labs 07/29/21 02:04 07/29/21 02:04 Abnormal lab results 07/29/21 07/29/21 Range/Units 02:04 02:04 [place] % (Auto) 7.6 H (0.0-7.3) % Lymph # (Auto) 1.0 L (1.2-5.4) K/mm3 Seg Neutrophils % 73.5 H (40.0-70.0) % Carbon Dioxide 21 L (22-30) mmol/L Creatinine 0.5 L (0.6-1.2) mg/dL Glucose 104 H (65-100) mg/dL Total Bilirubin 1.30 H (0.1-1.2) mg/dL AST 727 H (5-40) units/L ALT 575 H (7-56) units/L Alkaline Phosphatase 167 H (35-129) units/L Diabetes panel 07/29/21 Range/Units 02:04 Sodium 137 (137-145) mmol/L Potassium 3.8 (3.6-5.0) mmol/L Chloride 104.0 (98-107) mmol/L Carbon Dioxide 21 L (22-30) mmol/L BUN 9 (7-17) mg/dL Creatinine 0.5 L (0.6-1.2) mg/dL Glucose 104 H (65-100) mg/dL Calcium 9.4 (8.4-10.2) mg/dL AST 727 H (5-40) units/L ALT 575 H (7-56) units/L Alkaline Phosphatase 167 H (35-129) units/L Total Protein 7.3 (6.3-8.2) g/dL Albumin 4.4 (3.9-5) g/dL Calcium panel 07/29/21 Range/Units 02:04 Calcium 9.4 (8.4-10.2) mg/dL Albumin 4.4 (3.9-5) g/dL Pituitary panel 07/29/21 Range/Units 02:04 Sodium 137 (137-145) mmol/L Potassium 3.8 (3.6-5.0) mmol/L Chloride 104.0 (98-107) mmol/L Carbon Dioxide 21 L (22-30) mmol/L BUN 9 (7-17) mg/dL Creatinine 0.5 L (0.6-1.2) mg/dL Glucose 104 H (65-100) mg/dL Calcium 9.4 (8.4-10.2) mg/dL Adrenal panel 07/29/21 Range/Units 02:04 Sodium 137 (137-145) mmol/L Potassium 3.8 (3.6-5.0) mmol/L Chloride 104.0 (98-107) mmol/L Carbon Dioxide 21 L (22-30) mmol/L BUN 9 (7-17) mg/dL Creatinine 0.5 L (0.6-1.2) mg/dL Glucose 104 H (65-100) mg/dL Calcium 9.4 (8.4-10.2) mg/dL Total Bilirubin 1.30 H (0.1-1.2) mg/dL AST 727 H (5-40) units/L ALT 575 H (7-56) units/L Alkaline Phosphatase 167 H (35-129) units/L Total Protein 7.3 (6.3-8.2) g/dL Albumin 4.4 (3.9-5) g/dL Assessment and Plan 36yo female with unrelenting ruq pain. Pt with acute on chronic cholecystitis with stones. She notes 3 ED admissions for this conditon. Will do a cholecystectomy on this admission for unrelenting symptoms and failure of medical management.
--- NOTE | 2021-07-29 11:15 | History and Physical Report ---
History of Present Illness Date of examination: 07/29/21 Date of admission: 07/29/21 08:36 Chief complaint: Nausea and vomiting History of present illness: Patient is a 36-year-old female with history of gallstones who presented after acute onset of nausea, vomiting and diarrhea post meals. She also endorses epigastric and right upper quadrant abdominal pain that radiates to her shoulder and arm. This is her fourth hospitalization for similar symptoms. Patient vital signs are stable. Labs are notable for AST 77, ALT 575. General surgery consulted in ED. plan for laparoscopic cholecystectomy this hospitalization. PMHx: Migraines Surgical history: None Social history: Lives with family, denies alcohol, tobacco and illicit drug use Allergies:NKDA Home medications: None Past History Past Medical History: No medical history Past Surgical History: No surgical history Social history: lives with family Family history: no significant family history Medications and Allergies Allergies Allergy/AdvReac Type Severity Reaction Status Date / Time No Known Allergies Allergy Verified 12/24/16 19:43 Home Medications Medication Instructions Recorded Confirmed Last Taken Type Mag Hydrox/Aluminum Hyd/Simeth 10 ml PO QID PRN #1 oral.susp 08/31/20 Unknown Rx [Maalox Advanced Suspension] Ketorolac [Toradol] 10 mg PO Q4HR PRN 3 Days #18 tablet 07/30/21 Unknown Rx Active Meds: Active Medications Acetaminophen (Acetaminophen 325 Mg Tab) 650 mg PO Q4H PRN PRN Reason: Pain MILD(1-3)/Fever >100.5/COLEY Sodium Chloride (Nacl 0.9% 1000 Ml) 1,000 mls @ 75 mls/hr IV ONCE ONE Stop: 07/29/21 21:15 Last Admin: 07/29/21 08:50 Dose: 75 mls/hr Dextrose/Sodium Chloride (D5/0.45ns) 1,000 mls @ 100 mls/hr IV DIRECT VANCE Morphine Sulfate (Morphine 2 Mg/1 Ml Inj) 2 mg IV Q4H PRN PRN Reason: Pain, Moderate (4-6) Morphine Sulfate (Morphine 4 Mg/1 Ml Inj) 4 mg IV Q4H PRN PRN Reason: Pain , Severe (7-10) Ondansetron HCl (Ondansetron 4 Mg/2 Ml Inj) 4 mg IV Q8H PRN PRN Reason: Nausea And Vomiting Sodium Chloride (Sodium Chloride 0.9% 10 Ml Flush Syringe) 10 ml IV BID VANCE Sodium Chloride (Sodium Chloride 0.9% 10 Ml Flush Syringe) 10 ml IV PRN PRN PRN Reason: LINE FLUSH Review of Systems Constitutional: no weight loss, no weight gain, no fever, no chills, no sweats, no anorexia, no fatigue Ears, nose, mouth and throat: deferred Breasts: deferred Cardiovascular: no chest pain, no palpitations, no rapid/irregular heart beat, no lightheadedness, no shortness of breath Respiratory: no cough, no hemoptysis, no dyspnea on exertion, no wheezing Gastrointestinal: abdominal pain, nausea, vomiting, diarrhea, no constipation, no coffee ground emesis, no BRBPR, no melena, no hematochezia, no excessive gas Musculoskeletal: no neck stiffness, no arm numbness/tingling, no low back pain, no morning stiffness, no frequent falls Integumentary: deferred Neurological: migraines, no head injury, no seizures, no syncope, no gait dysfunction Psychiatric: anxiety, change in appetite, no change in sleep habits, no hypersomnia, no suicidal ideation Endocrine: no cold intolerance, no heat intolerance Exam - Physical Exam Narrative exam: GENERAL: Well-developed well-nourished. In no acute distress. HEENT: Normocephalic. Atraumatic. NECK: Supple. CHEST/LUNGS: CTAB on room air HEART/CARDIOVASCULAR: RRR. No murmur, rubs or gallops appreciated. ABDOMEN: +BS. Mild TTP at epigastrium SKIN: No rashes noted. NEURO: No focal motor deficit. Follows all commands and is ambulatory. MUSCULOSKELETAL: No joint effusion EXTREMITIES: No cyanosis, clubbing or edema. PSYCH: Cooperative. - Constitutional Vitals: Temp Pulse Resp BP Pulse Ox 98.7 F 61 16 118/70 100 07/29/21 07:49 07/29/21 07:49 07/29/21 07:49 07/29/21 07:49 07/29/21 07:49 Results - Labs CBC & Chem 7: 07/30/21 04:44 07/30/21 04:44 Labs: Laboratory Last Values WBC 5.6 K/mm3 (4.5-11.0) 07/29/21 02:04 RBC 4.90 M/mm3 (3.65-5.03) 07/29/21 02:04 Hgb 14.2 gm/dl (10.1-14.3) 07/29/21 02:04 Hct 42.3 % (30.3-42.9) 07/29/21 02:04 MCV 86 fl (79-97) 07/29/21 02:04 MCH 29 pg (28-32) 07/29/21 02:04 MCHC 34 % (30-34) 07/29/21 02:04 RDW 13.7 % (13.2-15.2) 07/29/21 02:04 Plt Count 256 K/mm3 (140-440) 07/29/21 02:04 Lymph % (Auto) 17.2 % (13.4-35.0) 07/29/21 02:04 [place] % (Auto) 7.6 % (0.0-7.3) H 07/29/21 02:04 Eos % (Auto) 1.2 % (0.0-4.3) 07/29/21 02:04 Baso % (Auto) 0.5 % (0.0-1.8) 07/29/21 02:04 Lymph # (Auto) 1.0 K/mm3 (1.2-5.4) L 07/29/21 02:04 [place] # (Auto) 0.4 K/mm3 (0.0-0.8) 07/29/21 02:04 Eos # (Auto) 0.1 K/mm3 (0.0-0.4) 07/29/21 02:04 Baso # (Auto) 0.0 K/mm3 (0.0-0.1) 07/29/21 02:04 Seg Neutrophils % 73.5 % (40.0-70.0) H 07/29/21 02:04 Seg Neutrophils # 4.1 K/mm3 (1.8-7.7) 07/29/21 02:04 Sodium 137 mmol/L (137-145) 07/29/21 02:04 Potassium 3.8 mmol/L (3.6-5.0) 07/29/21 02:04 Chloride 104.0 mmol/L (98-107) 07/29/21 02:04 Carbon Dioxide 21 mmol/L (22-30) L 07/29/21 02:04 Anion Gap 16 mmol/L 07/29/21 02:04 BUN 9 mg/dL (7-17) 07/29/21 02:04 Creatinine 0.5 mg/dL (0.6-1.2) L 07/29/21 02:04 Estimated GFR > 60 ml/min 07/29/21 02:04 BUN/Creatinine Ratio 18 % 07/29/21 02:04 Glucose 104 mg/dL (65-100) H 07/29/21 02:04 Calcium 9.4 mg/dL (8.4-10.2) 07/29/21 02:04 Total Bilirubin 1.30 mg/dL (0.1-1.2) H 07/29/21 02:04 AST 727 units/L (5-40) H 07/29/21 02:04 ALT 575 units/L (7-56) H 07/29/21 02:04 Alkaline Phosphatase 167 units/L (35-129) H 07/29/21 02:04 Total Protein 7.3 g/dL (6.3-8.2) 07/29/21 02:04 Albumin 4.4 g/dL (3.9-5) 07/29/21 02:04 Albumin/Globulin Ratio 1.5 % 07/29/21 02:04 HCG, Qual Negative (Negative) 07/29/21 05:56 Urine Color Yellow (Yellow) 07/29/21 Unknown Urine Turbidity Clear (Clear) 07/29/21 Unknown Urine pH 5.0 (5.0-7.0) 07/29/21 Unknown Ur Specific [place] 1.016 (1.003-1.030) 07/29/21 Unknown Urine Protein <15 mg/dl mg/dL (Negative) 07/29/21 Unknown Urine Glucose (UA) Neg mg/dL (Negative) 07/29/21 Unknown Urine Ketones Neg mg/dL (Negative) 07/29/21 Unknown Urine Blood Lg (Negative) 07/29/21 Unknown Urine Nitrite Neg (Negative) 07/29/21 Unknown Urine Bilirubin Neg (Negative) 07/29/21 Unknown Urine Urobilinogen < 2.0 mg/dL (<2.0) 07/29/21 Unknown Ur Leukocyte Esterase Neg (Negative) 07/29/21 Unknown Urine WBC (Auto) 4.0 /HPF (0.0-6.0) 07/29/21 Unknown Urine RBC (Auto) 28.0 /HPF (0.0-6.0) 07/29/21 Unknown U Epithel Cells (Auto) 2.0 /HPF (0-13.0) 07/29/21 Unknown Urine Mucus Few /HPF 07/29/21 Unknown Antibody Screen Negative 07/29/21 08:31 Assessment and Plan Assessment and plan: #Symptomatic Cholelithiasis -Patient with history of gallstones that were symptomatic in the past -CT abdomen pelvis showed cholelithiasis with minimal gallbladder thickening -Ultrasound of the abdomen showed mild hepatic steatosis, cholelithiasis with borderline gallbladder wall thickening -Patient without signs/symptoms of infection, no antibiotics required at this time -General surgery consulted, plan for cholecystectomy today #Elevated liver enzymes -AST 727, ALT 575, Alk phos 167 -US showed hepatic steatosis -will order hepatitis and lipid panel -will continue to monitor, likely secondary to cholelithiasis (passing stone) #Nausea/Vomiting -resolved -PRN zofran ordered #Obesity - Counseled patient on the importance of weight loss, incorporating exercise, and dietary changes (lean meats, fresh fruits and vegetables, and water intake). Patient expresses understanding. - Time: +15 min #Advanced care planning -Disease education conducted, care plan discussed, diagnoses discussed, prognosis discussed, and patient acknowledges understanding with care plan -Time: +30 min Advance Directives: No VTE prophylaxis?: Chemical Plan of care discussed with patient/family: Yes
[2021-07-29] MEDS ORDERED: LACTATED RINGERS 1,000 ML ONE (12:35)
--- NOTE | 2021-07-29 12:42 | Anesthesia Day of Surgery ---
Anesthesia Day of Surgery - Day of Surgery Patient Examined: Yes Patient H&P Reviewed: Yes Patient is NPO: Yes
--- NOTE | 2021-07-29 12:42 | Anesthesia Consultation ---
Anesthesia Consult and Med Hx Date of service: 07/29/21 - Airway Anesthetic Teeth Evaluation: Good ROM Head & Neck: Adequate Mental/Hyoid Distance: Adequate Mallampati Class: Class II Intubation Access Assessment: Probably Good - Pre-Operative Health Status ASA Pre-Surgery Classification: ASA2 Proposed Anesthetic Plan: General - Pulmonary Hx Smoking: No Hx Respiratory Symptoms: No - Cardiovascular System Hx Hypertension: No - Central Nervous System CVA: No - Gastrointestinal Hx Gastroesophageal Reflux Disease: No (transminitis 2/2 gall bladder disease) - Endocrine Hx Renal Disease: No Hx Liver Disease: No Hx Insulin Dependent Diabetes: No Hx Non-Insulin Dependent Diabetes: No Hx Thyroid Disease: No - Other Systems Hx Obesity: Yes (BMI 40) - Additional Comments Anesthesia Medical History Comments: No prior GA. No FHx anesthetic complications.
[2021-07-29] MEDS ORDERED: ceFAZolin/Water 2 GM/20 ML 2 GM/20 ML SYRINGE IV ONE (12:57)
[2021-07-29] MEDS ORDERED: SCOPOLAMINE TRANSDERMAL PATCH 72 HR TD NR (13:00)
[2021-07-29] MEDS ORDERED: LACTATED RINGERS 1,000 ML IV SCH (13:00)
[2021-07-29] MEDS ORDERED: ceFAZolin/STERILE WATER 2 GM/20 ML SYRINGE IV NR (13:00)
[2021-07-29] MEDS ORDERED: MIDAZOLAM 2 MG/2 ML INJ IV NR (13:00)
[2021-07-29] MEDS ORDERED: ONDANSETRON 4 MG/2 ML INJ ONE (13:12)
[2021-07-29] MEDS ORDERED: LIDOCAINE MPF (2%) 20 MG/1 ML VIAL 5 ML ONE (13:12)
[2021-07-29] MEDS ORDERED: dexAMETHasone 20 MG/5 ML VIAL ONE (13:12)
[2021-07-29] MEDS ORDERED: ROCURONIUM 50 MG/5 ML INJ IV ONE (13:12)
[2021-07-29] MEDS ORDERED: fentaNYL 100 MCG/2 ML INJ ONE (13:13)
[2021-07-29] MEDS ORDERED: KETAMINE/STERILE WATER 50 MG/ML SYRINGE ONE (13:15)
[2021-07-29] MEDS ORDERED: propofoL 200 MG/20 ML VIAL IV ONE (13:15)
[2021-07-29] MEDS ORDERED: LIDOCAINE (1%) 10 MG/1 ML VIAL 20 ML MDV ONE (13:41)
[2021-07-29] MEDS ORDERED: BUPIVACAINE/PF (0.5%) 5 MG/1 ML 10 ML VIAL INFILTRATI ONE ×2 (13:41→14:23)
[2021-07-29] MEDS ORDERED: PHENYLEPHRINE/NS 1,000 MCG/10 ML SYRINGE (OR USE) IV ONE (14:09)
[2021-07-29] MEDS ORDERED: WATER FOR IRRIG STERILE 1,500 ML BOTTLE IR ONE (14:24)
[2021-07-29] MEDS ORDERED: LIDOCAINE (1%) 10 MG/1 ML VIAL 20 ML MDV INFILTRATI ONE (14:24)
[2021-07-29] MEDS ORDERED: GLYCOPYRROLATE 0.4 MG/2 ML INJ ONE (15:02)
[2021-07-29] MEDS ORDERED: NEOSTIGMINE 10MG/10 ML INJ MDV ONE (15:02)
[2021-07-29] MEDS ORDERED: KETOROLAC 30 MG/1 ML INJ ONE (15:02)
--- NOTE | 2021-07-29 15:18 | Operative Report ---
Operative Report Operative Report: Date of procedure: 07/29/2021 Pre-op diagnosis: calculus of the gallbladder without cholecystitis, without obstruction Post-op diagnosis: same Procedure: robotic assisted laparoscopic cholecystectomy Anesthesia: GETA, local Findings: Surgeon: Dr. Lyn Supervisor Chemical: Dr. Whelan Estimated blood loss: minimal Pathology: list (gallbladder) Specimen disposition: to lab Condition: stable HPI an indication: Procedure in detail: The patient was identified in the preoperative area and taken back to the operating room, placed on the operating room table in supine position. After anesthesia was induced, the abdomen was prepped and draped in usual sterile fashion and timeout was performed. Local anesthetic was in filtrated into all of the skin incision sites. A supraumbilical incision was made through which a Veress needle was inserted. The Veress needle positioning was confirmed using saline drop test and the abdomen insufflated to 15 mmHg without incident. The Veress needle was then removed and a 5 mm Optiview trocar placed through this incision. The abdomen was inspected and there was no underlying injury to the abdominal structures. An additional right lateral 8 mm robotic trocar, left lateral 8 mm robotic trocar, left upper quadrant 8 mm robotic trocar was placed under direct visualization. The supraumbilical trocar was removed and replaced with a 12 mm balloon trocar under direct visualization. The patient was placed in reverse Trendelenburg and tilted to the left. The robot was then docked in the usual fashion and the surgeon moved to the console. A fenestrated bipolar was placed into arm #1, a hook into #2, and a Caudier grasper in arm #3. The gallbladder was visualized and (findings). The gallbladder fundus was grasped and retracted cephalad and infundibulum retracted laterally. The cystic duct and artery were carefully skeletonized. The medial and lateral peritoneal attachments to the gallbladder were dissected using hook electrocautery. The cystic duct and artery were the only 2 structures seen entering the gallbladder and the critical view was successfully obtained. Two hemolock clips were then placed on the proximal aspect of the cystic duct and one clip distally, and 1 hemolock clip was placed on the cystic artery proximally and 1 distally. The cystic duct and artery were transected in between the clips using EndoShears by the medical assistant prn. The gallbladder was dissected off the liver bed using hook electrocautery and placed in the right upper quadrant. The robot was then undocked and the surgeon scrubbed back in. The remainder of the case was performed laparoscopically. The gallbladder was placed into a Endo Catch bag and removed via the 12 mm port. The gallbladder fossa was then inspected and there was no identifiable bleeding or bile leakage. Hemostasis was ensured. The clips on the cystic duct and artery were visualized and intact. 12 mm port fascia was closed with interrupted 0 Vicryl sutures using the Jose Bower device. The remaining ports were removed under direct visualization. Skin incisions were closed with 4-0 Monocryl subcuticular stitches and skin glue. All skin incisions were once again infiltrated with local anesthetic. At the end case all sponge, instrument, sharp counts were correct 2. The patient was awoken from anesthesia, extubated, taken to PACU in stable condition.
[2021-07-29] MEDS: HYDROmorphone 1 MG/1 ML INJ IV PRN ×2 (15:42→15:59)
--- NOTE | 2021-07-29 17:14 | Post Anesthesia Evaluation ---
- Post Anesthesia Evaluation Patient Participated: Yes Airway Patent: Yes Stable Respiratory Function: Yes Nausea/Vomiting: No Temp > 96.8F: Yes Pain Manageable: Yes Adequeate Hydration: Yes Anesthesia Complications: No
[2021-07-29] MEDS: MORPHINE 4 MG/1 ML INJ IV PRN (19:58)
[2021-07-30] MEDS: MORPHINE 4 MG/1 ML INJ IV PRN (05:20)
[2021-07-30 05:49] LABS: Basophils % (Auto) 0.1 % (0.0-1.8); Hematocrit 39.9 % (30.3-42.9); Hemoglobin 13.3 gm/dl (10.1-14.3); Lymphocytes # (Auto) 0.6 K/mm3 (1.2-5.4); Lymphocytes % (Auto) 9.5 % (13.4-35.0); Mean Corpuscular HGB Conc 33 % (30-34); Mean Corpuscular Volume 88 fl (79-97); Monocytes # (Auto) 0.4 K/mm3 (0.0-0.8); Platelet Count 232 K/mm3 (140-440); Red Blood Count 4.56 M/mm3 (3.65-5.03)
[2021-07-30 06:12] LABS: Hepatitis B Surface Antigen Non-Reactive (Negative); Hepatitis C Virus Antibody Non-Reactive (NonReactive)
[2021-07-30 06:13] LABS: Alanine Aminotransferase 332 units/L (7-56); Albumin 3.6 g/dL (3.9-5); Blood Urea Nitrogen 7 mg/dL (7-17); Calcium 8.5 mg/dL (8.4-10.2); Chol/HDL Ratio 2.66 %; HDL Cholesterol 59 mg/dL (40-59); Hemolysis Index 8; LDL Cholesterol,Direct 93 mg/dL (50-130)
[2021-07-30 06:16] LABS: BUN/Creatinine Ratio 12
--- NOTE | 2021-07-30 10:44 | Discharge Summary ---
Providers - Providers Date of Admission: 07/29/21 08:36 Date of discharge: 07/30/21 Attending physician: MELECIO ARNOLD MD 07/29/21 08:39 Consult to Physician [CONS] Routine Comment: Consulting Provider: KANDY REYNOLDS Physician Instructions: Reason For Exam: biliary colic Primary care physician: MYLENE WU Hospitalization Reason for admission: biliary colic Condition: Stable Hospital course: 36-year-old female with history of gallstones who presented with acute onset nausea, vomiting and abdominal pain. CT of the abdomen pelvis showed cholelithiasis with minimal stranding of the gallbladder. Ultrasound showed cholelithiasis and border line wall thickening. General surgery was consulted and incision was made to proceed with lap cholecystectomy due to patient's previous history. Cholecystectomy was performed on 07/29. Patient clinically improved after surgery and was discharged home. Disposition: 01 HOME / SELF CARE / HOMELESS Final Discharge Diagnosis (Prints w/discharge instructions): Symptomatic cholelithiasis. Elevated liver enzymes. Nausea and vomiting. Obesity Time spent for discharge: 35 minutes Core Measure Documentation - Palliative Care Palliative Care/ Comfort Measures: Not Applicable - Core Measures Any of the following diagnoses?: none Exam - Physical Exam Narrative exam: GENERAL: Well-developed well-nourished. In no acute distress. CHEST/LUNGS: CTAB on room air HEART/CARDIOVASCULAR: RRR. No murmur, rubs or gallops appreciated. ABDOMEN: Multiple surgical scars intact.+BS. Mild TTP at epigastrium SKIN: No rashes noted. NEURO: No focal motor deficit. Follows all commands and is ambulatory. MUSCULOSKELETAL: No joint effusion EXTREMITIES: No cyanosis, clubbing or edema. PSYCH: Cooperative. - Constitutional Vitals: Temp Pulse Resp BP Pulse Ox 98.5 F 87 18 95/59 94 07/30/21 04:40 07/30/21 04:40 07/30/21 04:40 07/30/21 04:40 07/30/21 04:40 Plan Care Plan Goals: Please follow-up with Dr. Reynolds in clinic within 1 week. Make sure to take showers until you follow-up at your surgical follow-up appointment. Follow up with: MYLENE WU MD [Primary Care Provider] - 3-5 Days KANDY REYNOLDS MD [Staff Physician] - 7 Days Prescriptions: Ketorolac [Toradol] 10 mg PO Q4HR PRN 3 Days #18 tablet PRN Reason: Pain
[2021-07-30 12:51] VITALS: BP 112/71
--- NOTE | 2021-07-30 13:54 | Post Anesthesia Evaluation ---
- Post Anesthesia Evaluation Other Comments: Patient discharged prior to anesthesia rounds without issues. No complaints/concerns voiced by [facility]'s nursing staff.
== END 2021-07-30 13:03 | disposition home or self-care (01) | DRG 419 ==
LOC: ED 01:42 → 3A 08:36
PROVIDERS: ADMIT Student in an Organized Health Care Education/Training Program; ATTEND Student in an Organized Health Care Education/Training Program
PROC: 0FT44ZZ Resection of Gallbladder, Percutaneous Endoscopic Approach (ICD-10-PCS; principal; 2021-07-29)
PROC: 8E0W4CZ Robotic Assisted Procedure of Trunk Region, Percutaneous Endoscopic Approach (ICD-10-PCS; 2021-07-29)
DX: K80.12 Calculus of gallbladder with acute and chronic cholecystitis without obstruction (principal); Z20.822 Contact with and (suspected) exposure to COVID-19
CPT/HCPCS: 36415; 74177; 76705; 80053; 80061; 80074; 81001; 84703; 85025; 86850; 86900; 86901; 88304; G0378; J1815; J3490; J7070; J7120; Q0162; J0690; J1100; J1170; J1885; J2250; J2270; J2370; J2405; J2704; J2710; J3010; J7030; Q9967